=== PATIENT | male | born 1960 | race American Indian/Alaskan Native ===

== ENCOUNTER 2017-03-23 08:27 | Outpatient (CLI) | payer OTHER ==
--- NOTE | 2017-03-23 10:52 | Magnetic Resonance Report ---
MRI BRAIN WITHOUT AND WITH CONTRAST: 03/23/17 CLINICAL: Cluster headaches. TECHNIQUE: Axial diffusion, T1, FLAIR, gradient echo T2*, and coronal and axial T2 and sagittal T1 plus coronal and axial postcontrast T1 sequences on a 1.5 Elaine magnet. 12.0 cc of Multihance was injected intravenously for the contrast portion of the exam. Consent was obtained prior to the administration of contrast. FINDINGS: Normal ventricles and sulci. No restricted diffusion. No mass or enhancing lesion. Mild bilateral periventricular white matter hyperintensities and a single focal right frontal white matter hyperintensity on FLAIR and T2. No hemorrhage, edema or extra-axial collection. Normal pituitary and optic chiasm. The brainstem and cerebellum are normal. Intact vascular flow voids. The orbits, sinuses and soft tissues are normal. Normal calvarium and skull base. IMPRESSION: Mild chronic white matter microangiopathy and a single nonspecific right frontal white matter focal hyperintensity on FLAIR and T2. No mass or enhancing lesion.
== END 2017-03-23 08:28 | disposition home or self-care (01) ==
LOC: MRI 08:27
PROVIDERS: ATTEND Internal Medicine
DX: G44.011 Episodic cluster headache, intractable (principal); I73.89 Other specified peripheral vascular diseases
CPT/HCPCS: 70553; A9577